=== PATIENT | male | born 1985 | race Caucasian/White ===

== ENCOUNTER 2016-08-02 05:30 | Emergency (ER) | payer OTHER ==
[~2016-08-02] VITALS: Ht 172.7 cm; Wt 123.4 kg
[~2016-08-02 05:30] MED LIST: Z.0.NO CURRENT MEDS
[2016-08-02 05:38] VITALS: BP 131/75; PULSE 65; RESP 18; TEMP 98.9; O2SAT 97
[2016-08-02] MEDS ORDERED: TETANUS/DIPHTHERIA TOXOID PEDIATRIC 0.5 ML VIAL IM ONE (05:45)
[2016-08-02 05:47] VITALS: BP 131/75; PULSE 65; RESP 18; TEMP 98.9; O2SAT 97
--- NOTE | 2016-08-02 05:51 | PD ---
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 He developed over the last month several sores on his right foot. He does not have a history of diabetes. He denies any polyuria/polydipsia. He was treated with Bactroban and Septra but it was not getting any better and so he comes to the emergency department for this. He has not seen a tire recapping machine operator. [facility] Social History Alcohol Use: No Tobacco Use: No Substance Use: No Allergies-Medications (Allergen,Severity, Reaction): Coded Allergies: No Known Allergies (Unverified , 08/02/16) Reported Meds & Prescriptions Reported Meds & Active Scripts Active No Active Prescriptions or Reported Medications Review of Systems Except as stated in HPI: all other systems reviewed are Neg Physical Exam Narrative GENERAL: Well-nourished, well-developed patient in minimal apparent distress with his right foot discomfort. SKIN: Warm and dry. There is a 1 cm diameter ulcer medially on the foot and the dorsum of the foot has cellulitic involvement. There is some soft tissue swelling around both and likely cellulitis around both. HEAD: Normocephalic. EYES: No scleral icterus. No injection or drainage. NECK: Supple, trachea midline. No JVD or lymphadenopathy. CARDIOVASCULAR: Regular rate and rhythm without murmurs, gallops, or rubs. RESPIRATORY: Breath sounds equal bilaterally. No accessory muscle use. GASTROINTESTINAL: Abdomen soft, non-tender, nondistended. MUSCULOSKELETAL: No cyanosis, or edema. There is no bony tenderness nor deformity present on the foot. BACK: Nontender without obvious deformity. No CVA tenderness. Data Data Last Documented VS Vital Signs Date Time Temp Pulse Resp B/P Pulse Ox O2 Delivery O2 Flow Rate FiO2 08/02/16 05:49 65 18 08/02/16 05:47 98.9 131/75 97 Orders Wound Culture And Gram Stain (08/02/16 05:45) Foot, Complete (Vyx4yte) (08/02/16 05:51) Tetanus/Diphtheria Tox Adult (Tetanus/Di (08/02/16 06:00) MDM Medical Decision Making Medical Screen Exam Complete: Yes Emergency Medical Condition: Yes Medical Record Reviewed: Yes Interpretation(s) X-rays of the right foot show soft tissue swelling over the dorsal aspect of the foot. No acute osseous abnormality is identified. Differential Diagnosis Osteomyelitis, cellulitis, abscess formation Narrative Course The patient appears to have cellulitis of several parts of the foot. A culture was taken from an area of ulcer with surrounding cellulitis. Plan: The patient will be put on doxycycline, Septra DS and he is to continue the Bactroban locally around the ulcer. He needs to follow-up with a tire recapping machine operator. Diagnosis Primary Impression: Cellulitis of right foot Additional Impression: Ulcer of right foot Ruled Out: Osteomyelitis Additional Instructions: It is necessary to elevate her foot above your heart as much as possible, soak it twice daily. We will write a work excuse stating you need to be cleared by a tire recapping machine operator before you can return to work. Med/Other Pt SpecificInfo: Prescription(s) given Scripts Sulfamethoxazole-Trimethoprim (Bactrim DS)800-160 Mg Tab1 Tab PO BID #20 TAB Ref 0 Prov:Jung Martin MD 08/02/16 Doxycycline Hyclate 100 Mg Vtb094 Mg PO BID #20 CAP Ref 0 Prov:Jung Martin MD 08/02/16 Disposition: 01 DISCHARGE HOME Condition: Stable Jung Martin MD Aug 02, 2016 05:51
[2016-08-02] MEDS ORDERED: TETANUS/DIPHTHERIA TOXOID ADULT 0.5 ML VIAL IM ONE (06:00)
--- NOTE | 2016-08-02 06:30 | RADHPO ---
EXAM DATE/TIME: 08/02/2016 06:09 [place] COMPARISON: No previous studies available for comparison. INDICATIONS : Right foot pain with swelling and open wounds. MEDICAL HISTORY : None. SURGICAL HISTORY : None. ENCOUNTER: Initial ACUITY: 2 weeks PAIN SCORE: 7/10 LOCATION: Right foot FINDINGS: Three views of the right foot demonstrate no fracture or dislocation. The Lisfranc joint appears inta ct. Mineralization is within normal limits and there is no significant arthropathy. No radiopaque for eign body is identified. There is soft tissue swelling on the dorsal aspect of the foot superficial t o the metatarsals. CONCLUSION: Soft tissue swelling over the dorsal aspect of the foot. No acute osseous abnormality is identified. Rodger Mai MD on August 02, 2016 at 6:27 Board Certified Radiologist. This report was verified electronically.
[2016-08-02] MEDS ORDERED: BACT800T5 PO (06:43)
[2016-08-02] MEDS ORDERED: DOXY100C PO (06:43)
[2016-08-02 06:58] VITALS: BP 128/75; PULSE 68; RESP 18; O2SAT 97
== END 2016-08-02 06:59 | disposition home or self-care (01) ==
LOC: PHED 05:30
DX: L03.115 Cellulitis of right lower limb (principal); L97.519 Non-pressure chronic ulcer of other part of right foot with unspecified severity; Z23 Encounter for immunization
CPT/HCPCS: 73630; 86403; 87070; 90471; 90714

== ENCOUNTER 2018-03-31 11:18 | Inpatient (IN) ==
--- NOTE | 2018-03-31 11:57 | ED ---
HPI General Chief Complaint: Chest Pain Stated Complaint: SOB/Pain Time Seen by Provider: 03/31/18 11:31 Source: patient and family Mode of arrival: ambulatory Limitations: no limitations History of Present Illness HPI narrative: 32-year-old male the presents to the ED for evaluation of right- sided chest pain. Patient has had this since yesterday since workup. Per patient he had a vein removal less than a couple weeks ago. Per patient he was seen by his doctor today who did an ultrasound of his leg and he notes any DVT. He was concerned because of the chest pain I was concerned that he could be a pulmonary embolism recommended that he comes here. Patient was sent with a prescription as well as paperwork stating that the recommend that he gets a CTA to rule out pulmonary embolism. Patient himself states that the pain only comes when he takes a deep breath. He does have a history of asthma but denies any wheezing. Per patient he does not really have any shortness of breath only when he takes a deep breath he gets the discomfort. Per patient the pain gets to be 8 out of 10. He has not taken anything for this. No history of heart disease. No family history of heart disease. Takes no blood thinners. Related Data Home Medications Medication Instructions Recorded Confirmed gentamicin 1 applic TOPICAL DAILY 03/31/18 03/31/18 tramadol 50 mg PO Q4-6H PRN 03/31/18 03/31/18 Allergies Allergy/AdvReac Type Severity Reaction Status Date / Time No Known Allergies Allergy Verified 03/31/18 11:28 Review of Systems ROS: all other systems reviewed are negative [facility] Medical History Medical History Asthma (Acute) Surgical History Surgical History Status post sclerotherapy of varicose veins (Acute) Social History Social History Substance History: No History of Abuse Second Hand Smoke Exposure: No Smoking Status: Never smoker How Often Do You Have a Drink Containing Alcohol: Monthly or less Recent Travel in [facility] within the Last 8 Weeks: No Recent Out of Country Travel within the Last 8 Weeks: No Immunization History Tetanus Immunization: <5 Years Hx Influenza Vaccine This Season: No Exam Narrative Exam Narrative: GENERAL: Well appearing SKIN: Focused skin assessment warm/dry. HEAD: Atraumatic. Normocephalic. EYES: Pupils equal and round. No scleral icterus. No injection or drainage. ENT: No nasal bleeding or discharge. Mucous membranes pink and moist. Tongue is midline. No uvula deviation. NECK: Trachea midline. No JVD. CARDIOVASCULAR: Regular rate and rhythm. No murmur appreciated. RESPIRATORY: No accessory muscle use. Clear to auscultation. Breath sounds equal bilaterally. GASTROINTESTINAL: Abdomen soft, non-tender, nondistended. Hepatic and splenic margins not palpable. MUSCULOSKELETAL: No obvious deformities. No clubbing. No cyanosis. No edema. Full range of motion of the upper and lower extremities bilaterally. 2+ pulses bilaterally. NEUROLOGICAL: Awake and alert. No obvious cranial nerve deficits. Motor grossly within normal limits. Normal speech. PSYCHIATRIC: Appropriate mood and affect; insight and judgment normal. Course Initial Documented Vital Signs Temperature 99.0 F 03/31/18 11:21 Pulse Rate 101 H 03/31/18 11:21 Respiratory Rate 18 03/31/18 11:21 Blood Pressure 140/69 03/31/18 11:21 Pulse Oximetry 99 03/31/18 11:21 Last Documented Vital Signs Temperature 99.0 F 03/31/18 11:21 Pulse Rate 96 H 03/31/18 14:04 Respiratory Rate 18 03/31/18 14:04 Blood Pressure 137/65 03/31/18 14:04 Pulse Oximetry 99 03/31/18 14:04 Medical Decision Making RICK Attestation RICK supervised visit: Yes Attestation: I, Dr. King, have reviewed the advance practice practitioner's documentation and am in agreement, met with the patient face to face, made the diagnosis, and the medical decision making was done by me. *My assessment and Findings: Presentation reveals pulmonary embolism. Patient will be admitted for IV heparin. He is hemodynamically normal. This is not massive pulmonary embolism. Pt will be admitted to [facility] service under Dr Chavez. [facility] Narrative Medical decision making narrative: 32-year-old male the presents to the ED for evaluation of chest pain. Patient was properly examined and was found to have signs and symptoms of unclear etiology. Her physical exam is more consistent with pleurisy but patient did had surgery recently on his pain and there is concern for PE. He is slightly tachycardic. At this time I think is reasonable to follow the surgeon's recommendations and we will do CT and lab work. Patient agrees with this. CT and labs showed what appears to be pulmonary embolism. Case discussed with my attending Dr. King who recommends admission for heparin and observation. This was discussed with the patient and family who agree with plan. Patient was given IV bolus of heparin with drip. Case discussed with Dr. Yoo who agrees to admission to his service. Medical Screen Exam Complete: Yes Emergency Medical Condition: Yes Differential Diagnosis Differential Diagnosis: Pleurisy versus pulmonary embolism versus costochondritis versus pneumonia Medical Records Medical records reviewed: Yes I reviewed the patient's medical records. Lab Data Lab results reviewed: Yes I reviewed the patient's lab results. Lab results narrative: trop negative coags WNL Result diagrams: 03/31/18 11:45 03/31/18 11:45 Lab Results 03/31/18 03/31/18 03/31/18 Range/Units 11:45 11:45 11:45 WBC 10.6 (4.0-11.0) th/mm3 RBC 4.79 (4.50-5.90) mil/mm3 Hgb 14.2 (13.0-17.0) gm/dL Hct 41.8 (39.0-51.0) % MCV 87.4 (80.0-100.0) fL MCH 29.6 (27.0-34.0) pg MCHC 33.9 (32.0-36.0) % RDW 13.8 (11.6-17.2) % Plt Count 184 (150-450) th/mm3 MPV 7.6 (7.0-11.0) fL Neut % (Auto) 73.1 H (16.0-70.0) % Lymph % (Auto) 12.7 (9.0-44.0) % [place] % (Auto) 10.7 H (0.0-8.0) % Eos % (Auto) 3.1 (0.0-4.0) % Baso % (Auto) 0.4 (0.0-2.0) % Neut # (Auto) 7.8 H (1.8-7.7) th/mm3 Lymph # (Auto) 1.3 (1.0-4.8) th/mm3 [place] # (Auto) 1.1 H (0.0-0.9) th/mm3 Eos # (Auto) 0.3 (0.0-0.4) th/mm3 Baso # (Auto) 0.0 (0.0-0.2) th/mm3 WBC Differential . Differential Comment Auto diff final PT 10.3 (9.8-11.6) sec INR 1.0 Ratio APTT 27.1 (24.3-30.1) sec Sodium 139 (136-145) meq/L Potassium 3.8 (3.5-5.1) meq/L Chloride 107 (98-107) meq/L Carbon Dioxide 27.8 (21.0-32.0) meq/L Anion Gap 4 L (5-15) meq/L BUN 14 (7-18) mg/dL Creatinine 1.12 (0.60-1.30) mg/dL Estimated GFR 77 L (>89) mL/min Random Glucose 90 (74-106) mg/dL Calcium 9.0 (8.5-10.1) mg/dL Total Bilirubin 0.8 (0.2-1.0) mg/dL AST 19 (15-37) U/L ALT 41 (12-78) U/L Alkaline Phosphatase 79 (45-117) U/L Troponin I Less than 0.02 L (0.02-0.05) ng/mL Total Protein 8.4 H (6.4-8.2) g/dL Albumin 4.0 (3.4-5.0) g/dL Imaging Data Attestation: I personally reviewed and interpreted this imaging study as follows : Radiologist's impression: Chest CTA 03/31/18 11:39 CONCLUSION: 1. Acute pulmonary emboli within the right upper lobe and bilateral lower lobe pulmonary arteries and their branches. 2. Scattered atelectasis and/or infiltrates within the lower lobes bilaterally. 3. Enlarged fatty liver. 4. Splenomegaly. ECG Data Attestation: I personally reviewed and interpreted this ECG as follows: Interpretation: EKG shows sinus rhythm with no sign of acute ischemia or arrhythmia. Ventricular rate of 92 bpm, CT interval of 154 ms. Read by me and attending. No ST elevations noted. Discharge Plan Discharge Disposition Patient Disposition: 32 Still Patient Discharge Details Diagnosis: Acute pulmonary embolism Physicians Team ED Provider: Edward King ED Midlevel Provider: Andrea Cevallos Primary Care Provider: Linwood Anthony Attending Provider: Edmund Chavez Status ED Status: Admitted Observation Patient
[2018-03-31 12:04] LABS: Baso % (Auto) 0.4 % (0.0-2.0); Eos # (Auto) 0.3 th/mm3 (0.0-0.4); Eos % (Auto) 3.1 % (0.0-4.0); Hematocrit 41.8 % (39.0-51.0); Hemoglobin 14.2 gm/dL (13.0-17.0); Lymph # (Auto) 1.3 th/mm3 (1.0-4.8); Lymph % (Auto) 12.7 % (9.0-44.0); Mean Corpuscular HGB Conc 33.9 % (32.0-36.0); Mean Corpuscular Hemoglobin 29.6 pg (27.0-34.0); Mean Corpuscular Volume 87.4 fL (80.0-100.0); Mean Platelet Volume 7.6 fL (7.0-11.0); Mono # (Auto) 1.1 th/mm3 (0.0-0.9); Mono % (Auto) 10.7 % (0.0-8.0); Neut # (Auto) 7.8 th/mm3 (1.8-7.7); Neut % (Auto) 73.1 % (16.0-70.0); Platelet Count 184 th/mm3 (150-450); Red Blood Count 4.79 mil/mm3 (4.50-5.90); Red Cell Distribution Width 13.8 % (11.6-17.2); White Blood Count 10.6 th/mm3 (4.0-11.0)
[2018-03-31 12:13] LABS: Activated Partial Thrombo Time 27.1 sec (24.3-30.1); Prothrombin Time 10.3 sec (9.8-11.6)
[2018-03-31 12:24] LABS: Alanine Aminotransferase 41 U/L (12-78); Anion Gap 4 meq/L (5-15); Aspartate Aminotransferase 19 U/L (15-37); Blood Urea Nitrogen 14 mg/dL (7-18); Carbon Dioxide 27.8 meq/L (21.0-32.0); Chloride 107 meq/L (98-107); Glomerular Filtration Rate 77 mL/min (>89); Glucose,Random 90 mg/dL (74-106); Potassium 3.8 meq/L (3.5-5.1); Sodium 139 meq/L (136-145)
[2018-03-31 12:27] LABS: Alkaline Phosphatase 79 U/L (45-117); Total Protein 8.4 g/dL (6.4-8.2)
--- NOTE | 2018-03-31 13:33 | CT ---
EXAM DATE: 03/31/2018 12:27 PM EDT AGE/SEX: 32 years / Male INDICATIONS: Right chest pain for two days possible deep vein thrombosis CLINICAL DATA: This is the patient's initial encounter. Patient reports that signs and symptoms have been present for 2 days and indicates a pain score of 8/10. MEDICAL/SURGICAL HISTORY: Asthma. None. varicose vein RADIATION DOSE: 23.14 CTDI (mGy) COMPARISON: No prior exams available for comparison. TECHNIQUE: Volumetric scanning was performed using a multi-row detector CT scanner during bolus infu quynh of 73 ml Omnipaque 350 (iohexol) nonionic water-soluble contrast as a single exam dose. The dinorah a was post processed with a variety of visualization algorithms including full volume maximum intensi ty projection and sliding thin slab reformation. Using automated exposure control and adjustment of t he mA and/or kV according to patient size, radiation dose was kept as low as reasonably achievable to obtain optimal diagnostic quality images. DICOM format image data is available electronically for r eview and comparison. FINDINGS: Pulmonary Arteries: Acute pulmonary emboli are noted involving the right upper lobe and bilateral lo wer lobe pulmonary arteries and their branches. Lung: Scattered atelectasis and/or infiltrates are noted within the lower lobes bilaterally. Effusion: None. Mediastinum: No evidence of mediastinal or hilar adenopathy. Other: The axilla is unremarkable. Hepatosplenomegaly is noted. Fatty infiltration of the liver is a lso noted. CONCLUSION: 1. Acute pulmonary emboli within the right upper lobe and bilateral lower lobe pulmonary arteries an d their branches. 2. Scattered atelectasis and/or infiltrates within the lower lobes bilaterally. 3. Enlarged fatty liver. 4. Splenomegaly. Electronically signed by: Noble Wall MD 03/31/2018 1:31 PM EDT
[2018-03-31] MEDS ORDERED: Acetaminophen 325 MG Tablet PO PRN (14:04)
[2018-03-31] MEDS ORDERED: Morphine Sulfate Inj 2 MG/ML Vial IV.PUSH PRN (14:07)
[2018-03-31] MEDS ORDERED: Heparin Drip 25,000 UNIT/250 ML BAG IV.CONT PRN ×2 (14:09→15:08)
[2018-03-31] MEDS ORDERED: Heparin 10,000 UNITS/10 ML Vial (for IV use) IV.PUSH STA (14:09)
[2018-03-31 15:46] LABS: Hematocrit 40.4 % (39.0-51.0); Hemoglobin 13.7 gm/dL (13.0-17.0); Mean Corpuscular Hemoglobin 29.5 pg (27.0-34.0); Mean Corpuscular Volume 86.7 fL (80.0-100.0); Mean Platelet Volume 7.9 fL (7.0-11.0); Platelet Count 193 th/mm3 (150-450); Red Blood Count 4.65 mil/mm3 (4.50-5.90); White Blood Count 11.4 th/mm3 (4.0-11.0)
[2018-03-31 16:29] LABS: INR 1.1 Ratio; Prothrombin Time 11.1 sec (9.8-11.6)
--- NOTE | 2018-03-31 16:38 | P.HPIM ---
History of Present Illness Primary Care Physician: Linwood Anthnoy MD Chief Complaint: Chest pain with deep breathing History of Present Illness: The patient is a 32-year-old male with a past medical history of asthma and stasis ulcers who is presenting to the hospital with chest pain upon deep breathing. The patient says that he had surgery last Wednesday for vein removal on his right leg. He says he has a compression stocking on that extremity that is not to be removed. He has been relatively nonambulatory since the procedure. The patient says that yesterday morning he developed right-sided chest pain with deep breathing. That sensation has continued since then. He currently states his pain is an 8 out of 10 in severity with deep breathing. He denies any mucus production or fevers. He went to his doctor's office today who performed ultrasound of the lower extremity and that was negative for DVT. He was referred to the emergency department for evaluation for pulmonary embolism. The patient was complaining of some back pain from being on the stretcher too long. He did continue to have chest pain with deep breathing. Review of Systems All other systems reviewed negative except as stated in HPI PMFSH - History History Provided By: Patient - Medical History Medical History: Medical History (Last Updated 03/31/18 @ 16:35 by Edmund Chavez DO) Asthma Venous stasis ulcer - Surgical History Surgical History: Surgical History (Last Reviewed 03/31/18 @ 16:35 by Edmund Chavez DO) Status post sclerotherapy of varicose veins - Family History Family History: Family History (Last Updated 03/31/18 @ 16:35 by Edmund Chavez DO) Other Patient denies significant medical history - Social History I have reviewed the patient's Social History: Yes - Tobacco History Second Hand Smoke Exposure: No Tobacco Use In Past 30 Days: No Smoking Status: Never smoker - Alcohol History How Often Do You Have a Drink Containing Alcohol: Monthly or less - Substance Use History Substance History: No History of Abuse - Travel History Recent Travel in the [place] Within the Last 8 Weeks: No Recent Travel Out of the Country Within the Last 8 Weeks: No - Immunization History Tetanus Immunization: <5 Years Hx Influenza Vaccine This Season: No Medications and Allergies Active Medications: Active Medications Acetaminophen (Tylenol) 650 mg PO Q4H PRN PRN Reason: Temp > 100.4 Albuterol (Duoneb Neb (Prn)) 1 ampul NEB Q2HR NEB PRN PRN Reason: DYSPNEA Apixaban (Eliquis) 10 mg PO BID [facility] Gentamicin Sulfate (Gentamicin 0.1% Cream) 1 applicatio TOPICAL DAILY [facility] Heparin Sodium/Dextrose (Heparin/D5w 25,000 U/250 Ml) 25,000 unit in 250 mls @ 18 mls/hr IV.CONT TITRATE PRN; Protocol PRN Reason: Per Protocol Stop: 03/31/18 20:30 Last Admin: 03/31/18 15:30 Dose: 1,800 units/hr, 18 mls/hr Morphine Sulfate (Morphine Inj) 2 mg IV.PUSH Q4H PRN PRN Reason: BREAKTHROUGH PAIN Senna/Docusate Sodium (Venus-Colace) 1 tab PO BID [facility] Sodium Chloride (Ns Flush) 2 ml IV.FLUSH UNSCH PRN PRN Reason: FLUSH AFTER USING IV ACCESS Tramadol HCl (Ultram) 50 mg PO Q6H PRN PRN Reason: pain 3-10 Allergies Allergy/AdvReac Type Severity Reaction Status Date / Time No Known Allergies Allergy Verified 03/31/18 11:28 Home Medications Medication Instructions Recorded Confirmed Type gentamicin 1 applic TOPICAL DAILY 03/31/18 03/31/18 History tramadol 50 mg PO Q4-6H PRN 03/31/18 03/31/18 History Exam Vital signs: Vital Signs 03/31/18 11:21 03/31/18 11:28 03/31/18 14:04 Temperature 99.0 F Pulse Rate 101 H 98 H 96 H Respiratory Rate 18 18 Blood Pressure 140/69 137/65 Pulse Oximetry 99 98 Intake & Output 03/30/18 03/31/18 03/31/18 18:59 06:59 18:59 Weight 124.738 kg Narrative: GENERAL: Well appearing, no distress. SKIN: Focused skin assessment warm/dry. HEAD: Atraumatic. Normocephalic. EYES: Pupils equal and round. No scleral icterus. No injection or drainage. ENT: No nasal bleeding or discharge. Mucous membranes pink and moist. Tongue is midline. No uvula deviation. NECK: Trachea midline. No JVD. CARDIOVASCULAR: Regular rate and rhythm. No murmur appreciated. RESPIRATORY: No accessory muscle use. Clear to auscultation. Breath sounds equal bilaterally. GASTROINTESTINAL: Abdomen soft, non-tender, nondistended. Hepatic and splenic margins not palpable. MUSCULOSKELETAL: No obvious deformities. No clubbing. No cyanosis. No edema. Full range of motion of the upper and lower extremities bilaterally. 2+ pulses bilaterally. NEUROLOGICAL: Awake and alert. No obvious cranial nerve deficits. Motor grossly within normal limits. Normal speech. PSYCHIATRIC: Appropriate mood and affect; insight and judgment normal. Results - Labs CBC & Chem 7: 03/31/18 15:21 03/31/18 11:45 Labs: Short CBC 03/31/18 03/31/18 Range/Units 11:45 15:21 WBC 10.6 11.4 H (4.0-11.0) th/mm3 Hgb 14.2 13.7 (13.0-17.0) gm/dL Hct 41.8 40.4 (39.0-51.0) % Plt Count 184 193 (150-450) th/mm3 BMP 03/31/18 11:45 Sodium 139 Potassium 3.8 Chloride 107 Carbon Dioxide 27.8 BUN 14 Creatinine 1.12 Calcium 9.0 Cardiac Enzymes 03/31/18 Range/Units 11:45 Troponin I Less than 0.02 L (0.02-0.05) ng/mL Liver Function 03/31/18 Range/Units 11:45 Total Bilirubin 0.8 (0.2-1.0) mg/dL AST 19 (15-37) U/L ALT 41 (12-78) U/L Alkaline Phosphatase 79 (45-117) U/L Albumin 4.0 (3.4-5.0) g/dL - Imaging Impressions Chest CTA 03/31/18 11:39 CONCLUSION: 1. Acute pulmonary emboli within the right upper lobe and bilateral lower lobe pulmonary arteries and their branches. 2. Scattered atelectasis and/or infiltrates within the lower lobes bilaterally. 3. Enlarged fatty liver. 4. Splenomegaly. Caprini VTE Risk Assessment Caprini VTE Risk Assessment: Moderate/High Risk (score >= 2) Caprini Risk Assessment Model: Point Value = 1 Point Value = 2 Point Value = 3 Point Value = 5 Age 41-60 Minor surgery BMI > 25 kg/m2 Swollen legs Varicose veins or History of unexplained or recurrent spontaneous Oral contraceptives or hormone replacement Sepsis (< 1 month) Serious lung disease, including pneumonia (< 1 month) Abnormal pulmonary function Acute myocardial infarction Congestive heart failure (< 1 month) History of inflammatory bowel disease Medical patient at bed rest Age 61-74 Arthroscopic surgery Major open surgery (> 45 min) Laparoscopic surgery (> 45 min) Malignancy Confined to bed (> 72 hours) Immobilizing plaster cast Central venous access Age >= 75 History of VTE Family history of VTE Factor V Leiden Prothrombin [id number] Lupus anticoagulant Anticardiolipin antibodies Elevated serum homocysteine Heparin-induced thrombocytopenia Other congenital or acquired thrombophilia Stroke (< 1 month) Elective arthroplasty Hip, pelvis, or leg fracture Acute spinal cord injury (< 1 month) Prophylaxis Regimen: Total Risk Factor Score Risk Level Prophylaxis Regimen 0-1 Low Early ambulation 2 Moderate Order ONE of the following: *Sequential Compression Device (SCD) *Heparin 5000 units SQ BID 3-4 Higher Order ONE of the following medications: *Heparin 5000 units SQ TID *Enoxaparin/Lovenox 40 mg SQ daily (WT < 150 kg, CrCl > 30 mL/min) *Enoxaparin/Lovenox 30 mg SQ daily (WT < 150 kg, CrCl > 10-29 mL/min) *Enoxaparin/Lovenox 30 mg SQ BID (WT < 150 kg, CrCl > 30 mL/min) AND/OR *Sequential Compression Device (SCD) 5 or more Highest Order ONE of the following medications: *Heparin 5000 units SQ TID (Preferred with Epidurals) *Enoxaparin/Lovenox 40 mg SQ daily (WT < 150 kg, CrCl > 30 mL/min) *Enoxaparin/Lovenox 30 mg SQ daily (WT < 150 kg, CrCl > 10-29 mL/min) *Enoxaparin/Lovenox 30 mg SQ BID (WT < 150 kg, CrCl > 30 mL/min) AND *Sequential Compression Device (SCD) Assessment and Plan - Plan Acute PE Provoked by surgery last week. Started on a heparin gtt in the ED. -continue heparin gtt and then switch to Eliquis 10 mg BID this evening. Switch to 5mg BID after 7 days. -oxygen and nebs as needed. -incentive spirometry. -pain control with a bowel regimen. -anticipate d/c home in AM. Venous stasis ulcer S/p sclerotherapy. -outpt follow-up. PPx: Heparin gtt/ Eliquis
[2018-03-31] MEDS: Senna/Docusate Sodium 8.6/50 MG Tablet PO SCH (20:43)
[2018-04-01 05:28] LABS: Baso % (Auto) 0.2 % (0.0-2.0); Eos # (Auto) 0.1 th/mm3 (0.0-0.4); Eos % (Auto) 0.5 % (0.0-4.0); Hemoglobin 13.1 gm/dL (13.0-17.0); Lymph # (Auto) 1.4 th/mm3 (1.0-4.8); Lymph % (Auto) 10.2 % (9.0-44.0); Mean Corpuscular HGB Conc 34.6 % (32.0-36.0); Mean Corpuscular Hemoglobin 29.5 pg (27.0-34.0); Mean Corpuscular Volume 85.2 fL (80.0-100.0); Mean Platelet Volume 7.6 fL (7.0-11.0); Mono # (Auto) 1.5 th/mm3 (0.0-0.9); Mono % (Auto) 11.1 % (0.0-8.0); Neut # (Auto) 10.7 th/mm3 (1.8-7.7); Platelet Count 207 th/mm3 (150-450); Red Blood Count 4.46 mil/mm3 (4.50-5.90); Red Cell Distribution Width 13.7 % (11.6-17.2); White Blood Count 13.7 th/mm3 (4.0-11.0)
[2018-04-01 05:52] LABS: Albumin 3.7 g/dL (3.4-5.0); Anion Gap 11 meq/L (5-15); Aspartate Aminotransferase 18 U/L (15-37); Blood Urea Nitrogen 13 mg/dL (7-18); Calcium 8.8 mg/dL (8.5-10.1); Carbon Dioxide 25.1 meq/L (21.0-32.0); Chloride 103 meq/L (98-107); Glomerular Filtration Rate 76 mL/min (>89); Glucose,Random 102 mg/dL (74-106); Potassium 3.6 meq/L (3.5-5.1); Sodium 139 meq/L (136-145)
[2018-04-01 05:54] LABS: Alanine Aminotransferase 36 U/L (12-78)
[2018-04-01 05:56] LABS: Alkaline Phosphatase 77 U/L (45-117)
[2018-04-01] MEDS ORDERED: Gentamicin 0.1% Cream 15 GM Cream TOPICAL SCH (09:00)
[2018-04-01] MEDS: Senna/Docusate Sodium 8.6/50 MG Tablet PO SCH ×2 (09:00→20:17)
--- NOTE | 2018-04-01 11:50 | ECG ---
Date Performed: 03/31/2018 Time Performed: 11:34:50 PTAGE: 32 years EKG: Sinus rhythm NORMAL ECG INTERPRETATION BASED ON A DEFAULT AGE OF 42 YEARS NO PREVIOUS TRACING DOCTOR: Doug Barnes Interpretating Date/Time 04/01/2018 11:48:53
--- NOTE | 2018-04-01 16:09 | P.PNIM ---
Subjective Interval history: Patient reports that pleuritic chest pain continues. He has been trying to use incentive spirometer. Shortness of breath is improving. Did have a fever this morning 101 Physical Exam Vital signs: Vital Signs 03/31/18 20:00 03/31/18 20:18 04/01/18 00:00 Temperature 100.8 F H 100.9 F H Pulse Rate 90 101 H 94 H Respiratory Rate 16 20 Blood Pressure 121/71 114/58 L Pulse Oximetry 95 04/01/18 04:00 04/01/18 08:00 04/01/18 09:00 Temperature 100.8 F H 101.1 F H 101.1 F H Pulse Rate 110 H 106 H 111 H Respiratory Rate 20 16 16 Blood Pressure 119/56 L 113/62 113/62 Pulse Oximetry 94 L 96 93 L 04/01/18 12:00 Temperature 98.7 F Pulse Rate 106 H Respiratory Rate 16 Blood Pressure 115/59 L Pulse Oximetry 94 L Intake & Output 03/31/18 04/01/18 04/01/18 18:59 06:59 18:59 Intake Total 650 / 650 200 / 200 Balance 650 / 650 200 / 200 Weight 124.73 kg 124.73 kg Intake: IV 250 / 250 Heparin/D5W 25,000 U/250 mL 25, 250 / 250 000 unit In 250 ml @ Per Protocol IV.CONT TITRATE PRN Rx #:[id number] Oral 400 / 400 200 / 200 Other: # Voids 0 1 Date of Last Bowel Movement 03/31/18 03/31/18 # Bowel Movements 0 Weight On Admission 124.73 kg Narrative: GENERAL: Patient sitting up in chair at bedside. Alert and oriented x3. SKIN: Warm and dry. HEAD: Normocephalic. EYES: No scleral icterus. No injection or drainage. NECK: Supple, trachea midline. No JVD or lymphadenopathy. CARDIOVASCULAR: Regular rate and rhythm without murmurs, gallops, or rubs. RESPIRATORY: Breath sounds equal bilaterally. Faint crackles in the bases bilaterally. No accessory muscle use. GASTROINTESTINAL: Abdomen soft, non-tender, nondistended. MUSCULOSKELETAL: No cyanosis, bilateral lower extremity edema. This is chronic. Bilateral compression socks in place. BACK: Nontender without obvious deformity. No CVA tenderness. Results - Labs CBC & Chem 7: 04/01/18 04:47 04/01/18 04:47 Laboratory Results - last 24 hr 03/31/18 03/31/18 04/01/18 15:26 19:11 01:07 WBC RBC Hgb Hct MCV MCH MCHC RDW Plt Count MPV Neut % (Auto) Lymph % (Auto) [place] % (Auto) Eos % (Auto) Baso % (Auto) Neut # (Auto) Lymph # (Auto) [place] # (Auto) Eos # (Auto) Baso # (Auto) WBC Differential Differential Comment PT 11.1 INR 1.1 APTT Greater than 277.5 H* 32.6 H D 31.5 H Sodium Potassium Chloride Carbon Dioxide Anion Gap BUN Creatinine Estimated GFR Random Glucose Calcium Total Bilirubin AST ALT Alkaline Phosphatase Total Protein Albumin 04/01/18 04/01/18 04:47 04:47 WBC 13.7 H RBC 4.46 L Hgb 13.1 Hct 38.0 L MCV 85.2 MCH 29.5 MCHC 34.6 RDW 13.7 Plt Count 207 MPV 7.6 Neut % (Auto) 78.0 H Lymph % (Auto) 10.2 [place] % (Auto) 11.1 H Eos % (Auto) 0.5 Baso % (Auto) 0.2 Neut # (Auto) 10.7 H Lymph # (Auto) 1.4 [place] # (Auto) 1.5 H Eos # (Auto) 0.1 Baso # (Auto) 0.0 WBC Differential . Differential Comment Auto diff final PT INR APTT Sodium 139 Potassium 3.6 Chloride 103 Carbon Dioxide 25.1 Anion Gap 11 BUN 13 Creatinine 1.13 Estimated GFR 76 L Random Glucose 102 Calcium 8.8 Total Bilirubin 1.2 H AST 18 ALT 36 Alkaline Phosphatase 77 Total Protein 8.0 Albumin 3.7 Assessment and Plan - Plan //Acute PE //Acute community-acquired pneumonia. Provoked by surgery last week. Started on a heparin gtt in the ED. -continue heparin gtt and then switch to Eliquis 10 mg BID this evening. Switch to 5mg BID after 7 days. -oxygen and nebs as needed. -incentive spirometry. -pain control with a bowel regimen. = 04/01. Patient had fever up to 101.1, leukocytosis 13.7. Patient with pneumonia likely secondary to splinting and atelectasis from pulmonary embolism. Will continue treatment for pulmonary embolism, but will start Levaquin for treatment of community-acquired pneumonia. If patient is afebrile and stable, hopefully discharge within the next 1-2 days. //Venous stasis ulcer S/p sclerotherapy. -outpt follow-up. Discussed Condition With: Patient, nurse Discharge Planning: Discharge home in 1-2 days.
[2018-04-01] MEDS: levoFLOXacin 750 MG Tablet PO SCH (18:29)
[2018-04-02 07:02] LABS: Baso % (Auto) 0.3 % (0.0-2.0); Eos # (Auto) 0.1 th/mm3 (0.0-0.4); Eos % (Auto) 1.1 % (0.0-4.0); Hematocrit 36.9 % (39.0-51.0); Hemoglobin 12.6 gm/dL (13.0-17.0); Lymph # (Auto) 1.5 th/mm3 (1.0-4.8); Lymph % (Auto) 12.9 % (9.0-44.0); Mean Corpuscular HGB Conc 34.2 % (32.0-36.0); Mean Corpuscular Hemoglobin 29.6 pg (27.0-34.0); Mean Corpuscular Volume 86.7 fL (80.0-100.0); Mean Platelet Volume 7.5 fL (7.0-11.0); Mono # (Auto) 1.3 th/mm3 (0.0-0.9); Mono % (Auto) 10.7 % (0.0-8.0); Neut # (Auto) 8.9 th/mm3 (1.8-7.7); Platelet Count 199 th/mm3 (150-450); Red Blood Count 4.26 mil/mm3 (4.50-5.90); White Blood Count 11.8 th/mm3 (4.0-11.0)
[2018-04-02 07:32] LABS: Albumin 3.4 g/dL (3.4-5.0); Anion Gap 12 meq/L (5-15); Blood Urea Nitrogen 12 mg/dL (7-18); Calcium 8.7 mg/dL (8.5-10.1); Carbon Dioxide 26.2 meq/L (21.0-32.0); Chloride 101 meq/L (98-107); Glomerular Filtration Rate Greater Than 89 mL/min (>89); Glucose,Random 94 mg/dL (74-106); Magnesium 2.3 mg/dL (1.5-2.5); Phosphorus 3.7 mg/dL (2.5-4.9); Potassium 3.7 meq/L (3.5-5.1); Sodium 139 meq/L (136-145)
[2018-04-02] MEDS: Senna/Docusate Sodium 8.6/50 MG Tablet PO SCH (09:09)
[2018-04-02] MEDS: levoFLOXacin 750 MG Tablet PO SCH (09:09)
--- NOTE | 2018-04-02 09:10 | P.PNIM ---
Subjective Interval history: Patient says he is breathing better today. Reports chest pain is improving. Denies any nausea or vomiting. Feels like going home. Physical Exam Vital signs: Vital Signs 04/01/18 12:00 04/01/18 16:00 04/01/18 20:00 Temperature 98.7 F 98.5 F 99.5 F Pulse Rate 106 H 97 H 101 H Respiratory Rate 16 14 20 Blood Pressure 115/59 L 113/64 118/61 Pulse Oximetry 94 L 96 95 04/02/18 00:00 04/02/18 04:00 04/02/18 08:00 Temperature 98.4 F 100.9 F H 99.4 F Pulse Rate 91 H 107 H 105 H Respiratory Rate 20 20 16 Blood Pressure 117/58 L 117/57 L 118/50 L Pulse Oximetry 96 95 95 Intake & Output 04/01/18 04/02/18 04/02/18 18:59 06:59 18:59 Intake Total 1180 / 1180 860 / 860 Balance 1180 / 1180 860 / 860 Weight 124.3 kg Intake: Oral 1180 / 1180 860 / 860 Other: # Voids 2 3 Date of Last Bowel Movement 03/31/18 Narrative: GENERAL: Patient standing in room. Alert and oriented x3. SKIN: Warm and dry. HEAD: Normocephalic. EYES: No scleral icterus. No injection or drainage. NECK: Supple, trachea midline. No JVD or lymphadenopathy. CARDIOVASCULAR: Regular rate and rhythm without murmurs, gallops, or rubs. RESPIRATORY: Breath sounds equal bilaterally. Faint crackles in the bases bilaterally. No accessory muscle use. GASTROINTESTINAL: Abdomen soft, non-tender, nondistended. MUSCULOSKELETAL: No cyanosis, bilateral lower extremity edema. This is chronic. Bilateral compression socks in place. BACK: Nontender without obvious deformity. No CVA tenderness. Results - Labs CBC & Chem 7: 04/02/18 05:59 04/02/18 05:59 Laboratory Results - last 24 hr 04/02/18 04/02/18 05:59 05:59 WBC 11.8 H RBC 4.26 L Hgb 12.6 L Hct 36.9 L MCV 86.7 MCH 29.6 MCHC 34.2 RDW 14.0 Plt Count 199 MPV 7.5 Neut % (Auto) 75.0 H Lymph % (Auto) 12.9 [place] % (Auto) 10.7 H Eos % (Auto) 1.1 Baso % (Auto) 0.3 Neut # (Auto) 8.9 H Lymph # (Auto) 1.5 [place] # (Auto) 1.3 H Eos # (Auto) 0.1 Baso # (Auto) 0.0 WBC Differential . Differential Comment Auto diff final Sodium 139 Potassium 3.7 Chloride 101 Carbon Dioxide 26.2 Anion Gap 12 BUN 12 Creatinine 0.97 Estimated GFR Greater than 89 Random Glucose 94 Calcium 8.7 Phosphorus 3.7 Magnesium 2.3 Albumin 3.4 Assessment and Plan - Plan //Acute PE //Acute community-acquired pneumonia. Provoked by surgery last week. Started on a heparin gtt in the ED. -continue heparin gtt and then switch to Eliquis 10 mg BID this evening. Switch to 5mg BID after 7 days. -oxygen and nebs as needed. -incentive spirometry. -pain control with a bowel regimen. = 04/01. Patient had fever up to 101.1, leukocytosis 13.7. Patient with pneumonia likely secondary to splinting and atelectasis from pulmonary embolism. Will continue treatment for pulmonary embolism, but will start Levaquin for treatment of community-acquired pneumonia. If patient is afebrile and stable, hopefully discharge within the next 1-2 days. = 04/02. Discharge patient with Eliquis. Advised patient he needs to follow-up with primary care to continue on this medication. Patient conveys understanding. He will continue on incentive spirometer. He did have transient fever overnight, however overall improved. Continue on Levaquin to complete treatment course for pneumonia. //Venous stasis ulcer S/p sclerotherapy. -outpt follow-up. Discharge Planning: Discharge home today
--- NOTE | 2018-04-02 09:12 | P.DS ---
Date of admission: 04/01/18 16:13 Primary care physician: Linwood Anthony MD Brief History from admission: The patient is a 32-year-old male with a past medical history of asthma and stasis ulcers who is presenting to the hospital with chest pain upon deep breathing. The patient says that he had surgery last Wednesday for vein removal on his right leg. He says he has a compression stocking on that extremity that is not to be removed. He has been relatively nonambulatory since the procedure. The patient says that yesterday morning he developed right-sided chest pain with deep breathing. That sensation has continued since then. He currently states his pain is an 8 out of 10 in severity with deep breathing. He denies any mucus production or fevers. He went to his doctor's office today who performed ultrasound of the lower extremity and that was negative for DVT. He was referred to the emergency department for evaluation for pulmonary embolism. The patient was complaining of some back pain from being on the stretcher too long. He did continue to have chest pain with deep breathing. DS: Summary Hospital Course: CT pulmonary angiogram performed on admission as below with pulmonary embolism, as well as some infiltrates in bilateral lower lobes. Patient was treated with Eliquis which she will continue on. Patient was also started on Levaquin for treatment of community-acquired pneumonia. Patient was discharged home with incentive spirometer, albuterol, Eliquis, Levaquin to complete treatment course. Advised to follow-up with primary care For problem based summary from most recent progress note, please see below. //Acute PE //Acute community-acquired pneumonia. Provoked by surgery last week. Started on a heparin gtt in the ED. -continue heparin gtt and then switch to Eliquis 10 mg BID this evening. Switch to 5mg BID after 7 days. -oxygen and nebs as needed. -incentive spirometry. -pain control with a bowel regimen. = 04/01. Patient had fever up to 101.1, leukocytosis 13.7. Patient with pneumonia likely secondary to splinting and atelectasis from pulmonary embolism. Will continue treatment for pulmonary embolism, but will start Levaquin for treatment of community-acquired pneumonia. If patient is afebrile and stable, hopefully discharge within the next 1-2 days. = 04/02. Discharge patient with Eliquis. Advised patient he needs to follow-up with primary care to continue on this medication. Patient conveys understanding. He will continue on incentive spirometer. He did have transient fever overnight, however overall improved. Continue on Levaquin to complete treatment course for pneumonia. //Venous stasis ulcer S/p sclerotherapy. -outpt follow-up. Discharge Planning: Discharge home today - Time Spent with Patient Total time spent providing and/or coordinating discharge services: Greater than 30 minutes - Quality: VTE Deep Vein Thrombosis/Pulmonary Embolism Present on Admission: Yes Exam Vital signs: Vital Signs 04/01/18 12:00 04/01/18 16:00 04/01/18 20:00 Temperature 98.7 F 98.5 F 99.5 F Pulse Rate 106 H 97 H 101 H Respiratory Rate 16 14 20 Blood Pressure 115/59 L 113/64 118/61 Pulse Oximetry 94 L 96 95 04/02/18 00:00 04/02/18 04:00 04/02/18 08:00 Temperature 98.4 F 100.9 F H 99.4 F Pulse Rate 91 H 107 H 105 H Respiratory Rate 20 20 16 Blood Pressure 117/58 L 117/57 L 118/50 L Pulse Oximetry 96 95 95 Intake & Output 04/01/18 04/02/18 04/02/18 18:59 06:59 18:59 Intake Total 1180 / 1180 860 / 860 Balance 1180 / 1180 860 / 860 Weight 124.3 kg Intake: Oral 1180 / 1180 860 / 860 Other: # Voids 2 3 Date of Last Bowel Movement 03/31/18 Results Procedures completed during hospitalization: No invasive procedures. Labs on day of discharge: Labs from last 24 hours 04/02/18 04/02/18 05:59 05:59 WBC 11.8 H RBC 4.26 L Hgb 12.6 L Hct 36.9 L MCV 86.7 MCH 29.6 MCHC 34.2 RDW 14.0 Plt Count 199 MPV 7.5 Neut % (Auto) 75.0 H Lymph % (Auto) 12.9 [place] % (Auto) 10.7 H Eos % (Auto) 1.1 Baso % (Auto) 0.3 Neut # (Auto) 8.9 H Lymph # (Auto) 1.5 [place] # (Auto) 1.3 H Eos # (Auto) 0.1 Baso # (Auto) 0.0 WBC Differential . Differential Comment Auto diff final Sodium 139 Potassium 3.7 Chloride 101 Carbon Dioxide 26.2 Anion Gap 12 BUN 12 Creatinine 0.97 Estimated GFR Greater than 89 Random Glucose 94 Calcium 8.7 Phosphorus 3.7 Magnesium 2.3 Albumin 3.4 - Impressions ITS Impressions Chest CTA 03/31/18 11:39 CONCLUSION: 1. Acute pulmonary emboli within the right upper lobe and bilateral lower lobe pulmonary arteries and their branches. 2. Scattered atelectasis and/or infiltrates within the lower lobes bilaterally. 3. Enlarged fatty liver. 4. Splenomegaly. Discharge Plan - Discharge Disposition Patient Disposition: 01 Discharge Home - Discharge Condition Condition: Good - Discharge Order Discharge Orders: Discharge Order (Routine); Ordered 04/02/18 Ordered By: Jerson Lai - Discharge Details Anticipated Discharge Date: 04/02/18 - Physicians Team Primary Care Provider: Linwood Anthony Attending Provider: Jerson Lai
[2018-04-02 12:34] VITALS: BP 118/65; PULSE 100; RESP 17; TEMP 98.6; O2SAT 96
== END 2018-04-02 14:36 | disposition home or self-care (01) ==
LOC: NEDA 11:18 → NEPE 11:18 → N06 16:12
PROVIDERS: ADMIT Internal Medicine; ATTEND Internal Medicine